=== PATIENT | male | born 1935 | race Caucasian/White ===

== ENCOUNTER 2017-04-26 07:38 | Outpatient (CLI) | payer OTHER ==
[2015-12-31 10:02] VITALS: BP 145/83
[2017-04-26 08:22] LABS: eGFR (African) > 60; eGFR (Non-African) 56
== END 2017-04-26 09:03 ==
LOC: LAB 07:38
PROVIDERS: ATTEND Family Medicine
DX: E78.5 Hyperlipidemia, unspecified (principal); R73.9 Hyperglycemia, unspecified
CPT/HCPCS: 36415; 80053; 80061; 83036

== ENCOUNTER 2017-07-09 11:34 | Outpatient (CLI) | payer OTHER ==
[2015-12-31 10:02] VITALS: BP 145/83
--- NOTE | 2017-07-09 14:18 | Diagnostic Imaging Report ---
OMAR NICK [facility] [address] [facility].[address] [address] Report Submission Date: Jul 09, 2017 12:15:24 PM CDT Patient Study Name: KAMERON NUNEZ Date: Jul 09, 2017 11:45:38 AM CDT Modality Type: CR Gender: M Description: CHEST : 35 Institution: [facility] Physician: OMAR NICK Examination: Plain film ribs History: Injury Findings: 3 views of the ribs demonstrates a lucency involving the lateral margin of the 7th rib. Old appearing rib fractures involving the 4th and 5th ribs. No underlying parenchymal abnormality. Impression: Acute 7th rib fracture. Old 4th and 5th rib fractures. Electronically signed on Jul 09, 2017 12:15:24 PM CDT by: Himanshu Blackmon Impression should read Acute 6th and 7th rib fractures. Addendum electronically signed by Himanshu Blackmon on July 09, 2017 12:17:01 PM CDT [facility]
== END 2017-07-09 11:35 ==
LOC: RAD 11:34
PROVIDERS: ATTEND Physician Assistant
DX: R07.81 Pleurodynia (principal)
CPT/HCPCS: 71100

== ENCOUNTER 2017-10-26 13:48 | Emergency (ER) | payer OTHER ==
--- NOTE | 2017-10-26 14:22 | ED Physician Documentation ---
Abdominal Pain - HISTORIAN Historian: patient - HPI Stated Complaint: diff urinating Chief Complaint: Abdominal Pain Additonal Information: abd pain-unable to urinate and feeling of need for bm but just bowel leakage thinks last ur during noct-prev hesitancy dribbling - last bm yesterday Onset: days ago (1) Duration: constant, waxing, waning Timing: worse Context: denies: out of country travel, bad food, recent trauma Severity: moderate Quality: pain, cramping Associated Symptoms: nausea, other (rectal fullness and discomfort). denies: vomiting, coffee ground emesis, diarrhea, bloody stools - ROS CONST: no problems GI/: constipation, dark urine. denies: bloody urine, bloody stools CVS/RESP: none EYES/ENT: none MS/SKIN/LYMPH: none NEURO/PSYCH: anxiety - SOCIAL HX Smoking History: non-smoker Alcohol Use: none Drug Use: none - FAMILY HX Family History: none - PAST HX Past History: none, other (BPH) Surgeries/Procedures: other (turp) Allergies/Adverse Reactions: Allergies Allergy/AdvReac Type Severity Reaction Status Date / Time penicillamine [Penicillamine] Allergy Intermediate Hives Verified 12/31/15 10:03 Penicillins Allergy Verified 10/26/17 14:06 - VITAL SIGNS Vital Signs: Vital Signs Temp Pulse Resp BP Pulse Ox 78.8 F L 78 16 201/111 95 10/26/17 13:48 10/26/17 13:48 10/26/17 13:48 10/26/17 13:48 10/26/17 13:48 - REVIEWED ASSESSMENTS Nursing Assessment Reviewed: Yes Vitals Reviewed: Yes ED Results Lab/Radiology - Lab Results Lab Results: Lab Results 10/26/17 10/26/17 14:30 14:30 WBC 12.80 K/ul H K/ul (4.00-12.00) RBC 5.13 M/ul M/ul (3.90-5.20) Hgb 15.9 g/dL g/dL (12.0-18.0) Hct 48.9 % % (37.0-53.0) MCV 95.4 fl fl (80.0-100.0) MCH 31.0 pg pg (28.0-34.0) MCHC 32.5 g/dL g/dL (30.0-36.0) RDW 13.4 % % (11.3-14.3) Plt Count 251 K/mm3 K/mm3 (130-400) Neut % (Auto) 84.2 % H % (39.0-79.0) Lymph % (Auto) 9.1 % L % (16.0-50.0) [place] % (Auto) 3.5 % % (0.0-11.0) Eos % (Auto) 2.1 % % (0.0-6.8) Baso % (Auto) 0.3 (0.0-1.5) Neut # (Auto) 10.7 # k/uL H # k/uL (1.4-7.7) Lymph # (Auto) 1.2 # k/uL # k/uL (0.6-4.0) [place] # (Auto) 0.4 # k/uL # k/uL (0.0-0.9) Eos # (Auto) 0.3 # k/uL # k/uL (0.0-0.6) Baso # (Auto) 0.0 # k/uL # k/uL (0.0-0.5) Reactive Lymphs % 0.7 % % (0.0-5.0) Reactive Lymphs # 0.1 # k/uL # k/uL (0.0-0.8) Sodium 143 mmol/L mmol/L (136-145) Potassium 4.2 mmol/L mmol/L (3.5-5.1) Chloride 100 mmol/L mmol/L (98-107) Carbon Dioxide 28 mmol/L mmol/L (22-30) BUN 23 mg/dL H mg/dL (9-20) Creatinine 1.20 mg/dL mg/dL (0.66-1.25) Estimated Creat Clear 50 Est GFR ( Amer) > 60 (60 - ) Est GFR (Non-Af Amer) > 60 (60 - ) Glucose 99 mg/dL mg/dL (74-106) Calcium 9.3 mg/dL mg/dL (8.4-10.2) Total Bilirubin 1.0 mg/dL mg/dL (0.2-1.3) AST 34 U/L U/L (15-46) ALT 38 U/L U/L (13-69) Alkaline Phosphatase 110 U/L U/L (38-126) Total Protein 7.7 g/dL g/dL (6.3-8.2) Albumin 4.6 g/dL g/dL (3.5-5.0) - Radiology Radiology Impressions: ultra sound for urinary retention = 260+ urine. removed fecal impaction which gave some relief and pt voided small amt urine during procedure. feels better afterward but att ua cath revealed urethral blockage approx 1in from urethral entrance. - Orders Orders: ED Orders Category Date Time Status ABD COMPLETE [RAD] Stat Exams 10/26/17 Ordered US URINARY BLADDER ONLY [US RETROPERITONEAL LIMIT] [US] Exams 10/26/17 14:17 Ordered Stat CBC/PLATELET/DIFF Routine Lab 10/26/17 14:30 Completed CMP Routine Lab 10/26/17 14:30 Completed URINALYSIS Routine Lab 10/26/17 Ordered LIDOCAINE Urojet [Xylocaine] Med 10/26/17 15:03 Discontinued 5 ml MM .STK-MED ONE Abdominal Pain Physical Exam - Physical Exam General Appearance: moderate distress, anxious (pace3s floor several trips to w/o relief-some fecal drainage per history) ABDOMEN: soft, tenderness, abnormal bowel sounds (decreased), distended. No: no distension, non-tender SKIN: warm/dry, normal color. No: cyanosis, diaphoresis, jaundice, mottled EXTREMITIES: non-tender, normal range of motion NEURO: oriented X3, motor nml, sensation nml, mood/affect nml Vital Signs: Vital Signs Temp Pulse Resp BP Pulse Ox 78.8 F L 78 16 201/111 95 10/26/17 13:48 10/26/17 13:48 10/26/17 13:48 10/26/17 13:48 10/26/17 13:48 Discharge Clincal Impression: acute urinary retention-260cc, distal urethral blockage, fecal impaction - removed, prev TURP Referrals: Yuriy Krueger MD [Primary Care Provider] - 2 Days Comments: pt to go pvt auto to DR JOHNSON office now. lab sent. he will go direct to DR JOHNSON OFFICE Condition: Fair Disposition: 01 HOME, SELF-CARE Decision to Admit: NO Decision Time: 15:50
[2017-10-26 14:40] LABS: BASOPHILS % 0.3 (0.0-1.5); EOSINOPHILS % 2.1 % (0.0-6.8); MEAN CORPUSCULAR VOLUME 95.4 fl (80.0-100.0); MONOCYTES % 3.5 % (0.0-11.0); NEUTROPHILS # 10.7 # k/uL (1.4-7.7)
[2017-10-26 14:54] LABS: eGFR (African) > 60; eGFR (Non-African) > 60
[2017-10-26] MEDS ORDERED: LIDOCAINE Urojet 5 ML JEL MM ONE (15:03)
[2017-10-26 16:08] VITALS: BP 165/89
--- NOTE | 2017-10-26 17:35 | Diagnostic Imaging Report ---
KELSEY KING [facility] [address] [facility].[address] [address] Report Submission Date: Oct 26, 2017 2:51:52 PM TAILING MACHINE OPERATOR Patient Study Name: KAMERON NUNEZ Date: Oct 26, 2017 2:39:36 PM TAILING MACHINE OPERATOR Modality Type: US Gender: M Description: US RETROPERITONEAL LIMIT : 35 Institution: [facility] Physician: KELSEY KING Examination: Ultrasound bladder. History: BLADDER VOLUME ONLY; UNABLE TO VOID (Hx) Comparison exams: None available. Findings: Bladder margins without evidence for thickening or nodule. Bladder volume 223 ml. No post void imaging obtained. Impression: No evidence for bladder mucosal abnormality. Patient unable to void. Electronically signed on Oct 26, 2017 2:51:52 PM TAILING MACHINE OPERATOR by: Himanshu GARCIA
--- NOTE | 2017-10-26 17:36 | Diagnostic Imaging Report ---
KELSEY KING [facility] [address] [facility] [address] [address] Report Submission Date: Oct 26, 2017 3:21:47 PM GROUP DIRECTOR EXPERIENCE Patient Study Name: KAMERON NUNEZ Date: Oct 26, 2017 2:40:17 PM GROUP DIRECTOR EXPERIENCE Modality Type: CR Gender: M Description: ABDOMEN : 35 Institution: [facility] Physician: KELSEY KING Examination: Abdomen series History: FLAT/UPRIGHT ABDOMEN, ABDOMINAL PAIN/ DISCOMFORT, PT STATES INABILITY TO URINATE AND A FULL FEELING (Hx) / ABDOMEN PAIN (DICOM Hx) / ABDOMEN PAIN (Pt comments) Findings: 3 views obtained of the abdomen. No abnormal dilation of the large or small bowel. Significant stool throughout the large bowel. No suspicious calcification projecting over the renal fossa or the lower pelvic region. Pelvic phleboliths. Osseous structures are appropriate for age. Impression: Significant large bowel stool - constipation. No obstruction. No suspicious calcifications by plain film sensitivity. Electronically signed on Oct 26, 2017 3:21:47 PM GROUP DIRECTOR EXPERIENCE by: Himanshu GARCIA
== END 2017-10-26 15:53 | disposition home or self-care (01) ==
LOC: ED 13:48
DX: R30.0 Dysuria (principal); R33.9 Retention of urine, unspecified; N13.9 Obstructive and reflux uropathy, unspecified; K56.41 Fecal impaction; R11.0 Nausea
CPT/HCPCS: 36415; 74019; 76775; 80053; 85025; 99282; 99283

== ENCOUNTER 2017-12-26 13:27 | Outpatient (CLI) | payer OTHER ==
[2017-12-26 13:47] LABS: BASOPHILS % 0.5 (0.0-1.5); EOSINOPHILS % 3.5 % (0.0-6.8); MEAN CORPUSCULAR HEMOGLOBIN 30.4 pg (28.0-34.0); MEAN CORPUSCULAR VOLUME 95.5 fl (80.0-100.0); MONOCYTES % 4.8 % (0.0-11.0); NEUTROPHILS # 5.3 # k/uL (1.4-7.7)
[2017-12-26 14:16] LABS: eGFR (African) > 60; eGFR (Non-African) > 60
== END 2017-12-26 13:30 ==
LOC: LAB 13:27
PROVIDERS: ATTEND Family Medicine
DX: R53.1 Weakness (principal)
CPT/HCPCS: 36415; 80053; 85025

== ENCOUNTER 2018-10-03 11:04 | Outpatient (CLI) | payer OTHER ==
--- NOTE | 2018-10-03 21:05 | Diagnostic Imaging Report ---
RUBI SHERIFF [facility] [address] [facility] [address] [place], [place]. [address] Report Submission Date: Oct 03, 2018 12:14:07 PM COLLECTION CLERK Patient Study Name: KAMERON NUNEZ Date: Oct 03, 2018 11:31:40 AM COLLECTION CLERK Modality Type: CT\SR Gender: M Description: CT BRAIN W/O CONTRAST : 35 Institution: [facility] Physician: RUBI SHERIFF Examination: CT head without contrast History: RIGHT EYE DROOPING, TIA Comparison exam: None available Technique: Noncontrast head CT protocol. Findings: Ventricles and sulci are prominent. Cerebrocerebellar parenchyma demonstrates periventricular low attenuation consistent with small vessel disease. No evidence for parenchymal hemorrhage. No evidence for mass or mass effect. No midline shift. No extra axial fluid collections. Partial visualization of the paranasal sinuses, mastoid air cells, orbits, skull and scalp without gross irregularity. Streak artifact from dental hardware. Impression: Advanced age related changes. No acute parenchymal process. No hemorrhage. Given patient reported history, consider obtaining MRI brain to further evaluate. Electronically signed on Oct 03, 2018 12:14:07 PM COLLECTION CLERK by: Himanshu GARCIA
== END 2018-10-03 11:06 ==
LOC: RAD 11:04
PROVIDERS: ATTEND Family Medicine
DX: G45.9 Transient cerebral ischemic attack, unspecified (principal)
CPT/HCPCS: 70450

== ENCOUNTER 2019-05-16 09:56 | Outpatient (CLI) | payer OTHER ==
--- NOTE | 2019-05-16 10:50 | Diagnostic Imaging Report ---
RUBI SHERIFF [facility] [address] [facility] [address] [place], [place]. [address] Report Submission Date: May 16, 2019 10:43:05 AM CDT Patient Study Name: KAMERON NUNEZ Date: May 16, 2019 10:22:54 AM CDT Modality Type: CT\SR Gender: M Description: CT BRAIN W/O CONTRAST : 35 Institution: [facility] Physician: RUBI SHERIFF Examination: CT head without contrast History: MEMORY CHANGES, PT STATES MEMORY PROBLEMS X2-3 MONTHS Comparison exam: 03 October 2018 Technique: Noncontrast head CT protocol. Findings: Ventricles and sulci are prominent though stable. Cerebrocerebellar parenchyma demonstrates periventricular low attenuation consistent with small vessel disease: also stable. No evidence for parenchymal hemorrhage. No evidence for mass or mass effect. No midline shift. No extra axial fluid collections. Partial visualization of the paranasal sinuses, mastoid air cells, orbits, skull and scalp without gross irregularity. Streak artifact from dental hardware. Impression: Stable advanced age related changes. No acute parenchymal process. No hemorrhage. Given patient reported history, consider obtaining MRI brain to further evaluate. Electronically signed on May 16, 2019 10:43:05 AM CDT by: Himanshu GARCIA
== END 2019-05-16 10:10 ==
LOC: RAD 09:56
PROVIDERS: ATTEND Family Medicine
DX: R41.3 Other amnesia (principal)
CPT/HCPCS: 70450

== ENCOUNTER 2019-07-01 11:56 | Outpatient (CLI) | payer OTHER ==
--- NOTE | 2019-07-01 13:09 | Diagnostic Imaging Report ---
PATIENT MR#: [id number] PATIENT PATIENT NAME: KAMERON NUNEZ DATE OF : 1935 REFERRING PHYSICIAN: Yuriy Krueger EXAM DATE: 07/01/2019 ACCESSION NUMBER: [id number] EXAM DESCRIPTION: ABD COMPLETE HISTORY: CONSTIPATION X 1 MONTH COMPARISON: October 26, 2017. ABDOMINAL XRAY, 3 FRONTAL VIEWS, SUPINE AND ERECT: Bowel gas pattern: Normal bowel gas pattern within the small and large bowel. No evidence of obstruct ion. No significant fecal loading of the colon. Pelvic soft tissues: Right pelvic phleboliths. Skeleton: Intact. IMPRESSION: Normal bowel gas pattern, without obstruction or significant fecal loading. Read by: Dr. Waylon Murphy Transcribed by: Waylon Murphy Transcribed Date: 07/01/2019 1:09:20 PM Electronically signed by: Dr. Waylon Murphy Date signed: 07/01/2019 1:09:20 PM
== END 2019-07-01 12:16 ==
LOC: RAD 11:56
PROVIDERS: ATTEND Family Medicine
DX: K59.01 Slow transit constipation (principal)
CPT/HCPCS: 74019